=== PATIENT | male | born 1935 | race African-American/Black ===

== ENCOUNTER 2020-09-14 18:53 | Emergency (ER) | payer OTHER ==
[~2020-09-14] VITALS: Ht 177.8 cm; Wt 83.9 kg
[~2020-09-14 18:53] MED LIST: ASPIR 8181 MG PO; ATORVASTATIN CA10 MG PO; DOXAZOSIN MESYLA8 MG PO; OMEPRAZOLE20 MG PO; VERAPAMIL ER240 MG PO; ZESTRIL20 MG PO
[2020-09-14] MEDS ORDERED: LIDOCAINE JELLY 2% 10ML URO-JET TOP ONE (19:45)
[2020-09-14 20:01] LABS: BASOPHILS # (AUTO) 0.1 (0.0-0.1); BASOPHILS % 0.3 % (0.0-1.0); EOSINOPHILS # (AUTO) 0.1 (0.0-0.4); EOSINOPHILS % 0.5 % (0.0-6.0); HEMATOCRIT 41.2 % (38.2-49.6); HEMOGLOBIN 13.7 g/dL (14.0-18.0); LYMPHOCYTES % 6.7 % (18.0-39.1); MEAN CORPUSCULAR HEMOGLOBIN 31.5 pg (28-32); MEAN CORPUSCULAR HGB CONC 33.3 g/dL (31-35); MEAN CORPUSCULAR VOLUME 94.7 fL (81-99); MONOCYTES # (AUTO) 1.1 (0.2-0.8); MONOCYTES % 7.4 % (4.4-11.3); NEUTROPHILS # (AUTO) 12.3 (2.1-6.9); NEUTROPHILS % 84.4 % (38.7-80.0); PLATELET COUNT 160 x10e3/uL (140-360); RED BLOOD COUNT 4.35 x10e6/uL (4.3-5.7)
[2020-09-14 20:18] LABS: ANION GAP 16.8 mmol/L (8-16); BLOOD UREA NITROGEN 21 mg/dL (7-26); BUN/CREATININE RATIO 17 (6-25); CALCIUM 8.4 mg/dL (8.4-10.2); CARBON DIOXIDE 27 mmol/L (22-29); CHLORIDE 98 mmol/L (98-107); CREATININE, SERUM 1.23 mg/dL (0.72-1.25); EST GLOMERULAR FILTRATION RATE > 60 ML/MIN (60-); GLUCOSE 102 mg/dL (74-118); POTASSIUM 3.8 mmol/L (3.5-5.1); SODIUM 138 mmol/L (136-145)
[2020-09-14 20:39] LABS: CLARITY,URINE SL CLOUDY (CLEAR); COLOR,URINE YELLOW (YELLOW); KETONES,URINE NEGATIVE (NEGATIVE); NITRITE,URINE NEGATIVE (NEGATIVE); PROTEIN,URINE DIPSTICK NEGATIVE (NEGATIVE); URINE UROBILINOGEN 0.2 mg/dL (0.2 - 1)
[2020-09-14 20:40] LABS: LEUKOCYTE ESTERASE ,URINE TRACE (NEGATIVE)
[2020-09-14 20:49] LABS: BACTERIA,URINE MANY /HPF; RBC,URINE 0-5 /HPF (0-5)
[2020-09-14] MEDS ORDERED: CEFTRIAXONE SOD 1 GM in SODIUM CHLORIDE 0.9% 50ML 50 ML IV ONE (21:45)
[2020-09-14] MEDS ORDERED: CEFTRIAXONE SOD 1 GM/50 ML BAG IV ONE (21:45)
== END 2020-09-14 22:53 | disposition home or self-care (01) ==
LOC: ER 19:41
DX: R33.9 Retention of urine, unspecified (principal); N39.0 Urinary tract infection, site not specified; N40.1 Benign prostatic hyperplasia with lower urinary tract symptoms; I10 Essential (primary) hypertension; G20 Parkinson's disease; M25.561 Pain in right knee; G89.29 Other chronic pain
CPT/HCPCS: 36415; 51700; 80048; 81001; 85025; 87086; 87186; 99284; J0696

== ENCOUNTER 2021-09-02 06:09 | Observation (INO) | payer MEDICARE ==
[2021-08-31 14:16] LABS: BASOPHILS # (AUTO) 0.1 (0.0-0.1); BASOPHILS % 1.5 % (0.0-1.0); EOSINOPHILS # (AUTO) 0.6 (0.0-0.4); HEMATOCRIT 39.3 % (38.2-49.6); HEMOGLOBIN 12.8 g/dL (14.0-18.0); LYMPHOCYTES % 30.1 % (18.0-39.1); MEAN CORPUSCULAR HEMOGLOBIN 31.8 pg (28-32); MEAN CORPUSCULAR HGB CONC 32.6 g/dL (31-35); MEAN CORPUSCULAR VOLUME 97.8 fL (81-99); MONOCYTES # (AUTO) 0.4 (0.2-0.8); MONOCYTES % 10.2 % (4.4-11.3); NEUTROPHILS # (AUTO) 1.4 (2.1-6.9); NEUTROPHILS % 40.9 % (38.7-80.0); PLATELET COUNT 154 x10e3/uL (140-360); RED BLOOD COUNT 4.02 x10e6/uL (4.3-5.7); RED CELL DISTRIBUTION WIDTH 11.9 % (11.7-14.4)
[2021-08-31 14:17] LABS: ANION GAP 9.9 mmol/L (8-16); CALCIUM 8.9 mg/dL (8.4-10.2); CREATININE, SERUM 1.18 mg/dL (0.72-1.25); POTASSIUM 3.9 mmol/L (3.5-5.1)
[~2021-09-02] VITALS: Ht 177.8 cm; Wt 76.2 kg
[~2021-09-02 06:09] MED LIST changes: +AMANTADINE100 M1 PO; +CARBIDOPA-LEVO1 EACH PO; +FINASTERIDE5 MG PO; +FLOMAX0.4 MG PO
[2021-09-02] MEDS ORDERED: CEFTRIAXONE 1 GM VIAL ONE (07:02)
[2021-09-02] MEDS ORDERED: IOHEXOL 300 MG/ML 30ML INFUS..BTL ONE (08:00)
[2021-09-02] MEDS ORDERED: FENTANYL CITRATE/PF 100MCG/2 ML INJ ONE ×2 (10:00→13:08)
[2021-09-02] MEDS ORDERED: LABETALOL HCL 0 ML ONE (10:26)
[2021-09-02] MEDS ORDERED: HYDRALAZINE HCL 20 MG/ML VIAL ONE (10:43)
[2021-09-02 12:15] VITALS: BP 154/91
[2021-09-02] MEDS ORDERED: POVIDONE IODINE 0.05% 0.05 % ML PO ONE (12:49)
[2021-09-02] MEDS ORDERED: PROPOFOL IV EMULSION 10 MG/ML 20 ML VIAL ONE (12:49)
[2021-09-02] MEDS ORDERED: LIDOCAINE HCL 2% LOCAL INJ 5 ML SDV VIAL INJ ONE (12:49)
[2021-09-02] MEDS ORDERED: DEXAMETHASONE SOD PHOS INJ 4 MG/ML SDV ONE (12:49)
[2021-09-02] MEDS ORDERED: ONDANSETRON HCL INJ 2MG/ML 2ML 2 MG/ML VIAL ONE (12:49)
[2021-09-02] MEDS ORDERED: EPHEDRINE SULFATE INJ 50 MG/ML VIAL ONE (12:49)
[2021-09-02] MEDS ORDERED: SEVOFLURANE INHAL SOLN 250 ML PEN BTL ONE (12:49)
[2021-09-02] MEDS ORDERED: DEXTROSE 5%/0.9% SOD CHL 1,000 ML IV ONE (14:45)
[2021-09-02] MEDS ORDERED: ACETAMINOPHEN/CODEINE 300MG - 30MG TAB PO PRN (14:45)
[2021-09-02 14:54] VITALS: BP 108/61
[2021-09-02 20:00] VITALS: BP 113/65
[2021-09-02] MEDS: CARBIDOPA/LEVODOPA 10/100 TAB PO SCH (20:47)
[2021-09-02 21:30] VITALS: BP 113/65
[2021-09-03] VITALS: BP 121/66
[2021-09-03 04:00] VITALS: BP 123/67
[2021-09-03 05:57] LABS: BASOPHILS % 0.5 % (0.0-1.0); EOSINOPHILS # (AUTO) 0.2 (0.0-0.4); EOSINOPHILS % 3.1 % (0.0-6.0); HEMATOCRIT 26.4 % (38.2-49.6); HEMOGLOBIN 8.5 g/dL (14.0-18.0); LYMPHOCYTES # (AUTO) 1.3 (1.0-3.2); LYMPHOCYTES % 19.4 % (18.0-39.1); MEAN CORPUSCULAR HEMOGLOBIN 31.5 pg (28-32); MEAN CORPUSCULAR HGB CONC 32.2 g/dL (31-35); MEAN CORPUSCULAR VOLUME 97.8 fL (81-99); MONOCYTES # (AUTO) 0.6 (0.2-0.8); MONOCYTES % 9.6 % (4.4-11.3); NEUTROPHILS # (AUTO) 4.3 (2.1-6.9); NEUTROPHILS % 67.1 % (38.7-80.0); PLATELET COUNT 130 x10e3/uL (140-360); RED CELL DISTRIBUTION WIDTH 11.8 % (11.7-14.4)
[2021-09-03 06:21] LABS: CALCIUM 7.9 mg/dL (8.4-10.2); CREATININE, SERUM 0.84 mg/dL (0.72-1.25); POTASSIUM 3.9 mmol/L (3.5-5.1)
[2021-09-03 06:22] LABS: ANION GAP 5.9 mmol/L (8-16)
[2021-09-03] MEDS ORDERED: PANTOPRAZOLE SOD 40 MG TABEC PO SCH (07:30)
[2021-09-03 07:40] VITALS: BP 143/87
[2021-09-03] MEDS: CARBIDOPA/LEVODOPA 10/100 TAB PO SCH ×2 (09:00→15:00)
[2021-09-03] MEDS ORDERED: FINASTERIDE 5 MG TAB PO SCH (09:00)
[2021-09-03] MEDS ORDERED: AMANTADINE HCL PO SCH (09:00)
[2021-09-03] MEDS ORDERED: TAMSULOSIN HCL 0.4 MG CAP PO SCH (09:00)
[2021-09-03] MEDS: AMANTADINE HCL 50 MG/5 ML SOLUTION PO SCH ×2 (09:00→10:00)
[2021-09-03 09:59] VITALS: BP 143/87
[2021-09-03 12:02] VITALS: BP_SYST 135; BP_SYST 141; BP_DIAS 76; BP_DIAS 86
== END 2021-09-03 16:25 | disposition home or self-care (01) ==
LOC: OR 06:09 → PACU V 09:31 → MED/SURG 11:51
PROVIDERS: ADMIT Urology; ATTEND Urology
DX: N32.0 Bladder-neck obstruction (principal); N40.1 Benign prostatic hyperplasia with lower urinary tract symptoms; N13.8 Other obstructive and reflux uropathy; I10 Essential (primary) hypertension; Z20.822 Contact with and (suspected) exposure to COVID-19; G20 Parkinson's disease
CPT/HCPCS: 36415 ×2; 52601; 71046; 80048 ×2; 85025 ×2; 88305; 93005; G0378 ×2; J0360; J0696; J1100; J2001; J2405; J2704; J3010; J7042; S0164; U0002; Q9967

== ENCOUNTER 2021-12-02 11:28 | Emergency (ER) | payer MEDICARE, OTHER ==
[~2021-12-02] VITALS: Ht 177.8 cm; Wt 76.2 kg
[2021-12-02] MEDS ORDERED: HYDROCODONE/APAP 5MG-325MG TAB PO ONE (12:00)
[2021-12-02 12:07] LABS: BASOPHILS % 0.6 % (0.0-1.0); EOSINOPHILS # (AUTO) 0.1 (0.0-0.4); EOSINOPHILS % 1.5 % (0.0-6.0); HEMATOCRIT 32.7 % (38.2-49.6); HEMOGLOBIN 10.1 g/dL (14.0-18.0); LYMPHOCYTES # (AUTO) 0.7 (1.0-3.2); MEAN CORPUSCULAR HEMOGLOBIN 29.7 pg (28-32); MEAN CORPUSCULAR HGB CONC 30.9 g/dL (31-35); MEAN CORPUSCULAR VOLUME 96.2 fL (81-99); MONOCYTES # (AUTO) 0.4 (0.2-0.8); NEUTROPHILS # (AUTO) 5.3 (2.1-6.9); NEUTROPHILS % 80.4 % (38.7-80.0); PLATELET COUNT 145 x10e3/uL (140-360); RED CELL DISTRIBUTION WIDTH 12.5 % (11.7-14.4)
[2021-12-02] MEDS ORDERED: NEOMYCIN/POLYMYXIN/BACITRACIN 15 GM TUBE TOP ONE (12:30)
[2021-12-02 12:42] LABS: ALBUMIN 3.6 g/dL (3.5-5.0); ALBUMIN/GLOBULIN RATIO 1.1 (0.8-2.0); ALKALINE PHOSPHATASE 81 IU/L (40-150); ANION GAP 14.4 mmol/L (8-16); BLOOD UREA NITROGEN 28 mg/dL (7-26); BUN/CREATININE RATIO 14 (6-25); CALCIUM 8.2 mg/dL (8.4-10.2); CARBON DIOXIDE 25 mmol/L (22-29); CHLORIDE 103 mmol/L (98-107); CREATININE, SERUM 1.97 mg/dL (0.72-1.25); GLUCOSE 139 mg/dL (74-118); POTASSIUM 4.4 mmol/L (3.5-5.1); SODIUM 138 mmol/L (136-145)
[2021-12-02 12:44] LABS: ALANINE AMINOTRANSFERASE < 6 IU/L (0-55)
[2021-12-02] MEDS ORDERED: SODIUM CHLORIDE 0.9% 1000ML 1,000 ML IV ONE (13:15)
[2021-12-02] MEDS ORDERED: IOPAMIDOL 370 MG/ML 100 ML INFUS..BTL INJ ONE (13:34)
[2021-12-02 14:33] LABS: CLARITY,URINE CLOUDY (CLEAR); COLOR,URINE BROWN (YELLOW)
[2021-12-02 14:34] LABS: KETONES,URINE NEGATIVE (NEGATIVE); LEUKOCYTE ESTERASE ,URINE SMALL (NEGATIVE); NITRITE,URINE NEGATIVE (NEGATIVE); PROTEIN,URINE DIPSTICK 2+ (NEGATIVE); URINE UROBILINOGEN 0.2 mg/dL (0.2 - 1)
[2021-12-02 14:51] LABS: BACTERIA,URINE MODERATE /HPF; RBC,URINE >50 /HPF (0-5)
[2021-12-02] MEDS ORDERED: MEROPENEM 500 MG VIAL ONE (15:42)
[2021-12-02 15:58] VITALS: BP 169/83
== END 2021-12-02 15:55 | disposition other institution (70) ==
LOC: ER 11:42
DX: S22.41XA Multiple fractures of ribs, right side, initial encounter for closed fracture (principal); J93.9 Pneumothorax, unspecified; N13.1 Hydronephrosis with ureteral stricture, not elsewhere classified; R31.9 Hematuria, unspecified; R16.0 Hepatomegaly, not elsewhere classified; I10 Essential (primary) hypertension; G20 Parkinson's disease; W01.198A Fall on same level from slipping, tripping and stumbling with subsequent striking against other object, initial encounter; Y93.01 Activity, walking, marching and hiking; Y92.091 Bathroom in other non-institutional residence as the place of occurrence of the external cause
CPT/HCPCS: 36415; 70450; 71260; 72125; 73080; 74177; 80053; 81001; 85025; 87086; 99284; J2185; J7030; Q9967

== ENCOUNTER 2022-01-15 15:17 | Emergency (ER) | payer MEDICARE ==
[~2022-01-15] VITALS: Ht 177.8 cm; Wt 76.2 kg
[2022-01-15 17:58] LABS: BASOPHILS % 0.5 % (0.0-1.0); EOSINOPHILS # (AUTO) 0.9 (0.0-0.4); EOSINOPHILS % 16.4 % (0.0-6.0); HEMATOCRIT 34.9 % (38.2-49.6); HEMOGLOBIN 11.1 g/dL (14.0-18.0); LYMPHOCYTES # (AUTO) 1.3 (1.0-3.2); LYMPHOCYTES % 23.1 % (18.0-39.1); MEAN CORPUSCULAR HEMOGLOBIN 29.7 pg (28-32); MEAN CORPUSCULAR HGB CONC 31.8 g/dL (31-35); MEAN CORPUSCULAR VOLUME 93.3 fL (81-99); MONOCYTES # (AUTO) 0.5 (0.2-0.8); MONOCYTES % 9.4 % (4.4-11.3); NEUTROPHILS # (AUTO) 2.8 (2.1-6.9); NEUTROPHILS % 50.2 % (38.7-80.0); PLATELET COUNT 199 x10e3/uL (140-360); RED BLOOD COUNT 3.74 x10e6/uL (4.3-5.7); RED CELL DISTRIBUTION WIDTH 13.8 % (11.7-14.4)
[2022-01-15 18:18] LABS: ALBUMIN 3.4 g/dL (3.5-5.0); ANION GAP 14.3 mmol/L (8-16); BLOOD UREA NITROGEN 25 mg/dL (7-26); BUN/CREATININE RATIO 21 (6-25); CALCIUM 8.5 mg/dL (8.4-10.2); CARBON DIOXIDE 27 mmol/L (22-29); CHLORIDE 103 mmol/L (98-107); CREATININE, SERUM 1.18 mg/dL (0.72-1.25); GLUCOSE 109 mg/dL (74-118); POTASSIUM 4.3 mmol/L (3.5-5.1); SODIUM 140 mmol/L (136-145)
[2022-01-15 18:19] LABS: ALBUMIN/GLOBULIN RATIO 0.8 (0.8-2.0); ALKALINE PHOSPHATASE 116 IU/L (40-150)
[2022-01-15 18:29] LABS: ALANINE AMINOTRANSFERASE < 6 IU/L (0-55)
[2022-01-15 20:40] VITALS: BP 162/80
== END 2022-01-15 20:35 | disposition home or self-care (01) ==
LOC: ER 15:24
DX: I95.9 Hypotension, unspecified (principal); I10 Essential (primary) hypertension; G20 Parkinson's disease
CPT/HCPCS: 36415; 80053; 84484; 85025; 93005; 99283

== ENCOUNTER → 2024-01-25 | Day surgery (SDC) | payer MEDICARE ==
[2024-01-22 12:31] LABS: BASOPHILS # (AUTO) 0.1 (0.0-0.1); BASOPHILS % 0.8 % (0.0-1.0); EOSINOPHILS # (AUTO) 0.6 (0.0-0.4); EOSINOPHILS % 10.4 % (0.0-6.0); HEMATOCRIT 40.4 % (38.2-49.6); HEMOGLOBIN 12.5 g/dL (14.0-18.0); LYMPHOCYTES # (AUTO) 1.6 (1.0-3.2); LYMPHOCYTES % 25.9 % (18.0-39.1); MEAN CORPUSCULAR HEMOGLOBIN 30.2 pg (28-32); MEAN CORPUSCULAR HGB CONC 30.9 g/dL (31-35); MEAN CORPUSCULAR VOLUME 97.6 fL (81-99); MONOCYTES # (AUTO) 0.5 (0.2-0.8); MONOCYTES % 8.1 % (4.4-11.3); NEUTROPHILS # (AUTO) 3.3 (2.1-6.9); NEUTROPHILS % 54.3 % (38.7-80.0); PLATELET COUNT 156 x10e3/uL (140-360); RED BLOOD COUNT 4.14 x10e6/uL (4.3-5.7); RED CELL DISTRIBUTION WIDTH 12.8 % (11.7-14.4); WHITE BLOOD COUNT 6.07 x10e3/uL (4.8-10.8)
[2024-01-22 12:50] LABS: ANION GAP 15.1 mmol/L (8-16); CALCIUM 9.5 mg/dL (8.4-10.2); CREATININE, SERUM 1.15 mg/dL (0.72-1.25); POTASSIUM 4.1 mmol/L (3.5-5.1)
[~2024-01-25] MED LIST changes: +ATORVASTATIN CA20 MG PO; +BUPIVACAINE 0.25% 30ML SDV ONE; +BUPIVACAINE HCL 0.5% INJ 30 ML VIAL INJ ONE; +EPHEDRINE SULFATE INJ 50 MG/ML VIAL ONE; +FENTANYL CITRATE/PF 100MCG/2 ML INJ ONE; +GLYCOPYRRO0.2 MG/1 M PO; +IOPAMIDOL 610MG/1ML 300 MG/ML VIAL IV ONE; +LIDOCAINE HCL 2% LOCAL INJ 5 ML SDV VIAL INJ ONE; +NEOSTIGMINE 1 MG/ML 10ML VIAL ONE; +ONDANSETRON HCL INJ 2MG/ML 2ML 2 MG/ML VIAL ONE; +PROPOFOL IV EMULSION 10 MG/ML 20 ML VIAL ONE; +SEVOFLURANE INHAL SOLN 250 ML PEN BTL ONE; +VITAMIN D350 MCG
[2024-01-25] MEDS: LACTATED RINGER'S 1,000 ML ONE (09:19)
[2024-01-25] MEDS: CEFTRIAXONE 1 GM VIAL ONE (09:19)
[2024-01-25] MEDS: HYDRALAZINE HCL 20 MG/ML VIAL ONE (09:32)
[2024-01-25 10:48] VITALS: TEMP 97.2
[2024-01-25 12:00] VITALS: BP 135/89; PULSE 75; RESP 16; O2SAT 95
== END | disposition home or self-care (01) ==
LOC: OR 07:13
PROVIDERS: ATTEND Urology
DX: R33.9 Retention of urine, unspecified (principal); Q54.8 Other hypospadias; N39.0 Urinary tract infection, site not specified; G20.A1 Parkinson's disease without dyskinesia, without mention of fluctuations; I10 Essential (primary) hypertension; E78.5 Hyperlipidemia, unspecified; K21.9 Gastro-esophageal reflux disease without esophagitis; E66.9 Obesity, unspecified; Z01.810 Encounter for preprocedural cardiovascular examination; Z01.812 Encounter for preprocedural laboratory examination; Z01.818 Encounter for other preprocedural examination; Z79.82 Long term (current) use of aspirin; Z79.899 Other long term (current) drug therapy; Z68.30 Body mass index [BMI] 30.0-30.9, adult
CPT/HCPCS: 36415; 51040; 71046; 80048; 85025; 93005; J0360; J0696; J2001; J2405; J2704; J2710; J3010; J7121

== ENCOUNTER 2024-05-16 11:25 | Inpatient (IN) | payer MEDICARE ==
[~2024-05-16] VITALS: Ht 177.8 cm; Wt 74.8 kg
[2024-05-16] VITALS (7 sets, daily range): BP systolic 106–131; BP diastolic 59–80; PULSE 58–60; RESP 17–19; TEMP 97.6–208; O2SAT 98–100
[~2024-05-16 11:25] MED LIST changes: -BUPIVACAINE 0.25% 30ML SDV ONE; -BUPIVACAINE HCL 0.5% INJ 30 ML VIAL INJ ONE; -EPHEDRINE SULFATE INJ 50 MG/ML VIAL ONE; -FENTANYL CITRATE/PF 100MCG/2 ML INJ ONE; -IOPAMIDOL 610MG/1ML 300 MG/ML VIAL IV ONE; -LIDOCAINE HCL 2% LOCAL INJ 5 ML SDV VIAL INJ ONE; -NEOSTIGMINE 1 MG/ML 10ML VIAL ONE; -ONDANSETRON HCL INJ 2MG/ML 2ML 2 MG/ML VIAL ONE; -PROPOFOL IV EMULSION 10 MG/ML 20 ML VIAL ONE; -SEVOFLURANE INHAL SOLN 250 ML PEN BTL ONE; -VITAMIN D350 MCG; +VITAMIN D350 MCG PO
[2024-05-16 12:13] LABS: BASOPHILS % 0.7 % (0.0-1.0); EOSINOPHILS # (AUTO) 0.9 (0.0-0.4); EOSINOPHILS % 14.3 % (0.0-6.0); HEMATOCRIT 39.2 % (38.2-49.6); HEMOGLOBIN 11.8 g/dL (14.0-18.0); LYMPHOCYTES # (AUTO) 1.9 (1.0-3.2); LYMPHOCYTES % 31.3 % (18.0-39.1); MEAN CORPUSCULAR HEMOGLOBIN 30.8 pg (28-32); MEAN CORPUSCULAR HGB CONC 30.1 g/dL (31-35); MEAN CORPUSCULAR VOLUME 102.3 fL (81-99); MONOCYTES # (AUTO) 0.5 (0.2-0.8); MONOCYTES % 8.1 % (4.4-11.3); NEUTROPHILS # (AUTO) 2.7 (2.1-6.9); NEUTROPHILS % 45.4 % (38.7-80.0); PLATELET COUNT 147 x10e3/uL (140-360); RED BLOOD COUNT 3.83 x10e6/uL (4.3-5.7); RED CELL DISTRIBUTION WIDTH 13.5 % (11.7-14.4); WHITE BLOOD COUNT 6.03 x10e3/uL (4.8-10.8)
[2024-05-16] MEDS: SODIUM CHLORIDE 0.9% 500ML 500 ML IV ONE (12:20)
[2024-05-16 12:43] LABS: ALBUMIN 3.3 g/dL (3.5-5.0); ANION GAP 10.9 mmol/L (8-16); BILIRUBIN,TOTAL 0.4 mg/dL (0.2-1.2); CALCIUM 8.8 mg/dL (8.4-10.2); CREATININE, SERUM 1.06 mg/dL (0.72-1.25); POTASSIUM 3.9 mmol/L (3.5-5.1); TOTAL PROTEIN 6.6 g/dL (6.5-8.1)
[2024-05-16 12:50] LABS: CLARITY,URINE TURBID (CLEAR); COLOR,URINE YELLOW (YELLOW)
[2024-05-16 12:51] LABS: BACTERIA,URINE MANY /HPF; BILIRUBIN,URINE NEGATIVE (NEGATIVE); EPITHELIAL CELLS,URINE FEW /LPF; GLUCOSE, URINE NEGATIVE (NEGATIVE); KETONES,URINE NEGATIVE (NEGATIVE); LEUKOCYTE ESTERASE ,URINE LARGE (NEGATIVE); NITRITE,URINE NEGATIVE (NEGATIVE); PH,URINE 6 (5 - 7); PROTEIN,URINE DIPSTICK 2+ (NEGATIVE); URINE UROBILINOGEN 0.2 mg/dL (0.2 - 1); WBC,URINE (MAN) >50 /HPF (0-5)
[2024-05-16] MEDS ORDERED: IOPAMIDOL 370 MG/ML 100 ML INFUS..BTL INJ ONE (13:00)
[2024-05-16] MEDS ORDERED: ONDANSETRON HCL INJ 2MG/ML 2ML 2 MG/ML VIAL IV PRN (15:15)
[2024-05-16] MEDS ORDERED: SODIUM CHLORIDE FLUSH 10 ML SYR INJ PRN (15:15)
[2024-05-16] MEDS: HYDRALAZINE HCL 20 MG/ML VIAL IV STA (16:34)
[2024-05-16] MEDS ORDERED: DOCUSATE SODIUM 100 MG CAP PO SCH (17:00)
[2024-05-16] MEDS: SOD PHOSPHATE/SOD BIPHOSPHATE ENEMA 132 ML BTL PR ONE (19:31)
[2024-05-16] MEDS: MINERAL OIL 132 ML BTL PR ONE (23:30)
[2024-05-17] VITALS (10 sets, daily range): BP systolic 123–156; BP diastolic 54–89; PULSE 58–79; RESP 17–20; TEMP 97.3–98.6; O2SAT 95–100
[2024-05-17] MEDS ORDERED: MAGNESIUM HYDROXIDE 30 ML UDC PO ONE (00:30)
[2024-05-17] MEDS: MAGNESIUM HYDROXIDE 30 ML UDC PO STA (00:41)
[2024-05-17 01:59] LABS: % IRON SATURATION 31 % (15-50); IRON 67 ug/dL (65-175); TOTAL IRON BINDING CAPACITY 218 ug/dL (261-478); TRANSFERRIN 156 mg/dL (174-364)
[2024-05-17 02:33] LABS: FOLATE 5.7 ng/mL (7.0-15.4)
[2024-05-17 06:37] LABS: BASOPHILS # (AUTO) 0.1 (0.0-0.1); BASOPHILS % 1.1 % (0.0-1.0); EOSINOPHILS # (AUTO) 0.7 (0.0-0.4); EOSINOPHILS % 13.4 % (0.0-6.0); HEMATOCRIT 33.7 % (38.2-49.6); HEMOGLOBIN 10.4 g/dL (14.0-18.0); LYMPHOCYTES # (AUTO) 1.4 (1.0-3.2); LYMPHOCYTES % 27.6 % (18.0-39.1); MEAN CORPUSCULAR HGB CONC 30.9 g/dL (31-35); MEAN CORPUSCULAR VOLUME 100.6 fL (81-99); MONOCYTES # (AUTO) 0.4 (0.2-0.8); NEUTROPHILS # (AUTO) 2.6 (2.1-6.9); NEUTROPHILS % 49.7 % (38.7-80.0); PLATELET COUNT 152 x10e3/uL (140-360); RED BLOOD COUNT 3.35 x10e6/uL (4.3-5.7); RED CELL DISTRIBUTION WIDTH 13.6 % (11.7-14.4); WHITE BLOOD COUNT 5.22 x10e3/uL (4.8-10.8)
[2024-05-17 06:58] LABS: ALBUMIN 2.8 g/dL (3.5-5.0); BILIRUBIN,TOTAL 0.5 mg/dL (0.2-1.2); CALCIUM 8.8 mg/dL (8.4-10.2); CREATININE, SERUM 0.86 mg/dL (0.72-1.25); TOTAL PROTEIN 5.5 g/dL (6.5-8.1)
[2024-05-17] MEDS ORDERED: MELATONIN 3 MG TAB PO PRN (12:15)
[2024-05-17] MEDS ORDERED: SIMETHICONE 80 MG CHEW PO PRN (12:15)
[2024-05-17] MEDS ORDERED: ONDANSETRON HCL INJ 2MG/ML 2ML 2 MG/ML VIAL IV PRN (12:15)
[2024-05-17] MEDS ORDERED: METOPROLOL TARTRATE INJ 1 MG/ML VIAL IV PRN (12:15)
[2024-05-17] MEDS ORDERED: ALBUTEROL/IPRATROPIUM 3 ML NEB NEB PRN (12:15)
[2024-05-17] MEDS: SODIUM CHLORIDE 0.45% 1,000 ML IV SCH (13:09)
[2024-05-17] MEDS: PANTOPRAZOLE SOD 40 MG TABEC PO SCH (17:32)
[2024-05-17] MEDS: DOCUSATE SODIUM 100 MG CAP PO SCH (17:32)
[2024-05-17] MEDS: ATORVASTATIN 20 MG TAB PO SCH (21:44)
[2024-05-17] MEDS: SENNOSIDES 8.6 MG TAB PO SCH (21:44)
[2024-05-18] VITALS (10 sets, daily range): BP systolic 132–156; BP diastolic 65–79; PULSE 58–77; RESP 18–19; TEMP 98.2–99; O2SAT 93–100
[2024-05-18] MEDS: MAGNESIUM HYDROXIDE 30 ML UDC PO ONE ×3 (00:09→23:31)
[2024-05-18 06:49] LABS: BASOPHILS % 0.6 % (0.0-1.0); EOSINOPHILS # (AUTO) 0.8 (0.0-0.4); EOSINOPHILS % 14.1 % (0.0-6.0); HEMATOCRIT 32.5 % (38.2-49.6); HEMOGLOBIN 10.2 g/dL (14.0-18.0); LYMPHOCYTES # (AUTO) 1.3 (1.0-3.2); LYMPHOCYTES % 24.8 % (18.0-39.1); MEAN CORPUSCULAR HEMOGLOBIN 31.2 pg (28-32); MEAN CORPUSCULAR HGB CONC 31.4 g/dL (31-35); MEAN CORPUSCULAR VOLUME 99.4 fL (81-99); MONOCYTES # (AUTO) 0.4 (0.2-0.8); MONOCYTES % 8.1 % (4.4-11.3); NEUTROPHILS # (AUTO) 2.8 (2.1-6.9); NEUTROPHILS % 52.2 % (38.7-80.0); PLATELET COUNT 137 x10e3/uL (140-360); RED BLOOD COUNT 3.27 x10e6/uL (4.3-5.7); RED CELL DISTRIBUTION WIDTH 13.1 % (11.7-14.4); WHITE BLOOD COUNT 5.33 x10e3/uL (4.8-10.8)
[2024-05-18 07:15] LABS: CALCIUM 8.2 mg/dL (8.4-10.2); CREATININE, SERUM 0.85 mg/dL (0.72-1.25); MAGNESIUM 2.1 MG/DL (1.3-2.1); PHOSPHORUS 2.5 MG/DL (2.3-4.7)
[2024-05-18] MEDS: FOLIC ACID/CYANOCOB/PYRIDOXINE TAB PO SCH (09:15)
[2024-05-18] MEDS: ASPIRIN 81 MG CHEW TAB PO SCH (09:15)
[2024-05-18] MEDS: GUAIFENESIN/DEXTROMETHORPHAN LIQD 5 ML UDC NG SCH (15:15)
[2024-05-19] VITALS (8 sets, daily range): BP systolic 109–142; BP diastolic 56–68; PULSE 60–90; RESP 18–23; TEMP 98.3–100.3; O2SAT 94–100
[2024-05-19 05:45] LABS: BASOPHILS % 0.5 % (0.0-1.0); EOSINOPHILS # (AUTO) 0.8 (0.0-0.4); HEMATOCRIT 32.2 % (38.2-49.6); HEMOGLOBIN 10.2 g/dL (14.0-18.0); LYMPHOCYTES # (AUTO) 1.6 (1.0-3.2); LYMPHOCYTES % 26.9 % (18.0-39.1); MEAN CORPUSCULAR HEMOGLOBIN 31.3 pg (28-32); MEAN CORPUSCULAR HGB CONC 31.7 g/dL (31-35); MEAN CORPUSCULAR VOLUME 98.8 fL (81-99); MONOCYTES # (AUTO) 0.6 (0.2-0.8); MONOCYTES % 9.4 % (4.4-11.3); NEUTROPHILS # (AUTO) 2.9 (2.1-6.9); NEUTROPHILS % 49.9 % (38.7-80.0); PLATELET COUNT 135 x10e3/uL (140-360); RED BLOOD COUNT 3.26 x10e6/uL (4.3-5.7); RED CELL DISTRIBUTION WIDTH 13.2 % (11.7-14.4); WHITE BLOOD COUNT 5.84 x10e3/uL (4.8-10.8)
[2024-05-19 06:02] LABS: ANION GAP 9.2 mmol/L (8-16); CALCIUM 8.1 mg/dL (8.4-10.2); CREATININE, SERUM 0.85 mg/dL (0.72-1.25); MAGNESIUM 2.3 MG/DL (1.3-2.1); PHOSPHORUS 2.5 MG/DL (2.3-4.7); POTASSIUM 4.2 mmol/L (3.5-5.1)
[2024-05-19] MEDS: MAGNESIUM HYDROXIDE 30 ML UDC PO ONE (08:55)
[2024-05-19] MEDS: MAGNESIUM HYDROXIDE 30 ML UDC PO SCH (08:57)
[2024-05-20] VITALS (9 sets, daily range): BP systolic 115–139; BP diastolic 64–84; PULSE 61–78; RESP 16–21; TEMP 97.9–99.6; O2SAT 90–98
[2024-05-20] MEDS: MAGNESIUM HYDROXIDE 30 ML UDC PO SCH (09:22)
[2024-05-20] MEDS: CIPROFLOXACIN 500 MG TAB PO SCH (13:37)
[2024-05-20] MEDS ORDERED: ALBUTEROL/IPRATROPIUM 3 ML NEB NEB PRN (13:45)
[2024-05-20] MEDS: DOXYCYCLINE HYCLATE TABLET 100 MG TAB PO SCH (21:33)
[2024-05-21] VITALS: BP 158/67; PULSE 70; RESP 16; TEMP 98.4; O2SAT 93
[2024-05-21] MEDS ORDERED: Docusate Sodium PO (05:11)
[2024-05-21] MEDS ORDERED: MILK OF MA400 MG/5 M PO (05:11)
[2024-05-21] MEDS ORDERED: Folic Acid/Cyanocob/Pyridoxine PO (05:11)
[2024-05-21] MEDS ORDERED: SENOKOT8.6 MG PO (05:11)
[2024-05-21] MEDS ORDERED: DOCUSATE SODIU100 MG PO (05:11)
[2024-05-21] MEDS ORDERED: SIMETHICONE80 MG PO (05:11)
[2024-05-21] MEDS ORDERED: DOXYCYCLINE HY100 MG PO (05:11)
[2024-05-21] MEDS ORDERED: CIPRO500 MG PO (05:11)
[2024-05-21 05:49] VITALS: BP 145/79; PULSE 68; RESP 19; TEMP 98.7; O2SAT 93
[2024-05-21 07:25] VITALS: PULSE 78; RESP 20; O2SAT 98
[2024-05-21 07:41] VITALS: BP 123/74; PULSE 65; RESP 17; TEMP 98; O2SAT 95
[2024-05-21 08:10] VITALS: BP 123/74; PULSE 65; RESP 17; TEMP 98.4; O2SAT 95
== END 2024-05-21 11:15 | disposition home health service (06) | DRG 389 ==
LOC: ER 11:47 → ERHOLD 15:15 → MED/SURG3 17:33
PROVIDERS: ADMIT Internal Medicine; ATTEND Internal Medicine
DX: K56.41 Fecal impaction (principal); N39.0 Urinary tract infection, site not specified; B95.2 Enterococcus as the cause of diseases classified elsewhere; B96.5 Pseudomonas (aeruginosa) (mallei) (pseudomallei) as the cause of diseases classified elsewhere; B96.20 Unspecified Escherichia coli [E. coli] as the cause of diseases classified elsewhere; G20.A1 Parkinson's disease without dyskinesia, without mention of fluctuations; D64.9 Anemia, unspecified; I10 Essential (primary) hypertension; K52.9 Noninfective gastroenteritis and colitis, unspecified; R33.9 Retention of urine, unspecified; Z79.82 Long term (current) use of aspirin; Z99.3 Dependence on wheelchair; Z93.59 Other cystostomy status
CPT/HCPCS: 36415; 71045; 74019; 74177; 76882; 80048; 80053; 81001; 82270; 82607; 82746; 83540; 83690; 83735; 84100; 84466; 85025; 85045; 87086; 87186; 94799; 99252; 99284; J0360; J0696; J7040; Q9967

== ENCOUNTER 2024-05-31 11:55 | Emergency (ER) | payer MEDICARE ==
[~2024-05-31] VITALS: Ht 177.8 cm; Wt 74.8 kg
[~2024-05-31 11:55] MED LIST changes: +CIPRO500 MG PO; +DOCUSATE SODIU100 MG PO; +DOXYCYCLINE HY100 MG PO; +Docusate Sodium PO; +Folic Acid/Cyanocob/Pyridoxine PO; +MILK OF MA400 MG/5 M PO; +SENOKOT8.6 MG PO; +SIMETHICONE80 MG PO
[2024-05-31 13:13] LABS: BASOPHILS # (AUTO) 0.1 (0.0-0.1); BASOPHILS % 0.7 % (0.0-1.0); EOSINOPHILS # (AUTO) 0.8 (0.0-0.4); EOSINOPHILS % 10.6 % (0.0-6.0); HEMATOCRIT 45.6 % (38.2-49.6); HEMOGLOBIN 13.7 g/dL (14.0-18.0); LYMPHOCYTES # (AUTO) 2.2 (1.0-3.2); LYMPHOCYTES % 30.1 % (18.0-39.1); MEAN CORPUSCULAR HEMOGLOBIN 30.7 pg (28-32); MEAN CORPUSCULAR VOLUME 102.2 fL (81-99); MONOCYTES # (AUTO) 0.6 (0.2-0.8); MONOCYTES % 8.3 % (4.4-11.3); NEUTROPHILS # (AUTO) 3.6 (2.1-6.9); NEUTROPHILS % 50.2 % (38.7-80.0); PLATELET COUNT 201 x10e3/uL (140-360); RED BLOOD COUNT 4.46 x10e6/uL (4.3-5.7); RED CELL DISTRIBUTION WIDTH 13.6 % (11.7-14.4); WHITE BLOOD COUNT 7.14 x10e3/uL (4.8-10.8)
[2024-05-31 14:38] LABS: ALBUMIN 3.7 g/dL (3.5-5.0); ALBUMIN/GLOBULIN RATIO 0.9 (0.8-2.0); ANION GAP 16.1 mmol/L (8-16); BILIRUBIN,TOTAL 0.6 mg/dL (0.2-1.2); CALCIUM 9.8 mg/dL (8.4-10.2); CREATININE, SERUM 1.11 mg/dL (0.72-1.25); POTASSIUM 5.1 mmol/L (3.5-5.1)
[2024-05-31 16:21] VITALS: PULSE 71; RESP 18; TEMP 98.6
[2024-05-31 17:37] VITALS: PULSE 71; RESP 18; TEMP 98.3; O2SAT 98
[2024-05-31 17:46] VITALS: BP 210/105
[2024-05-31] MEDS: HYDRALAZINE HCL 20 MG/ML VIAL IV STA (17:46)
== END 2024-05-31 17:40 | disposition home or self-care (01) ==
LOC: ER 12:13
DX: Z46.6 Encounter for fitting and adjustment of urinary device (principal); R33.9 Retention of urine, unspecified; G20.A1 Parkinson's disease without dyskinesia, without mention of fluctuations; I10 Essential (primary) hypertension
CPT/HCPCS: 36415; 51705; 80053; 85025; 99284; J0360

== ENCOUNTER 2024-09-28 11:27 | Inpatient (IN) | payer MEDICARE ==
[~2024-09-28] VITALS: Ht 177.8 cm; Wt 77.1 kg
[2024-09-28 11:41] VITALS: TEMP 98.1
[2024-09-28 12:32] LABS: BASOPHILS # (AUTO) 0.1 (0.0-0.1); BASOPHILS % 1.2 % (0.0-1.0); EOSINOPHILS # (AUTO) 0.8 (0.0-0.4); EOSINOPHILS % 15.6 % (0.0-6.0); HEMATOCRIT 33.2 % (38.2-49.6); HEMOGLOBIN 10.4 g/dL (14.0-18.0); LYMPHOCYTES # (AUTO) 1.6 (1.0-3.2); LYMPHOCYTES % 30.4 % (18.0-39.1); MEAN CORPUSCULAR HEMOGLOBIN 30.1 pg (28-32); MEAN CORPUSCULAR HGB CONC 31.3 g/dL (31-35); MEAN CORPUSCULAR VOLUME 96.2 fL (81-99); MONOCYTES # (AUTO) 0.4 (0.2-0.8); MONOCYTES % 7.4 % (4.4-11.3); NEUTROPHILS # (AUTO) 2.3 (2.1-6.9); NEUTROPHILS % 45.4 % (38.7-80.0); PLATELET COUNT 194 x10e3/uL (140-360); RED BLOOD COUNT 3.45 x10e6/uL (4.3-5.7); RED CELL DISTRIBUTION WIDTH 13.7 % (11.7-14.4); WHITE BLOOD COUNT 5.14 x10e3/uL (4.8-10.8)
[2024-09-28] MEDS: SODIUM CHLORIDE 0.9% 500ML 500 ML IV ONE (12:32)
[2024-09-28 12:35] LABS: BILIRUBIN,URINE NEGATIVE (NEGATIVE); CLARITY,URINE HAZY (CLEAR); COLOR,URINE YELLOW (YELLOW); GLUCOSE, URINE NEGATIVE (NEGATIVE); KETONES,URINE TRACE (NEGATIVE); LEUKOCYTE ESTERASE ,URINE SMALL (NEGATIVE); NITRITE,URINE NEGATIVE (NEGATIVE); PH,URINE 6 (5 - 7); PROTEIN,URINE DIPSTICK 1+ (NEGATIVE); URINE UROBILINOGEN 1 mg/dL (0.2 - 1)
[2024-09-28 12:36] LABS: AMORPHOUS SEDIMENT,URINE FEW; BACTERIA,URINE MODERATE /HPF; EPITHELIAL CELLS,URINE FEW /LPF; WBC,URINE (MAN) 21-50 /HPF (0-5)
[2024-09-28 12:37] LABS: MUCUS,URINE FEW
[2024-09-28] MEDS ORDERED: HYDROMORPHONE 1MG/1ML INJ IV STA (12:40)
[2024-09-28] MEDS ORDERED: ONDANSETRON HCL INJ 2MG/ML 2ML 2 MG/ML VIAL IV STA (12:40)
[2024-09-28 12:45] LABS: INR 1.16; PROTHROMBIN TIME 15.5 seconds (11.9-14.5)
[2024-09-28] MEDS ORDERED: SODIUM CHLORIDE 0.9% 500ML 500 ML IV ONE (12:45)
[2024-09-28 12:46] LABS: PARTIAL THROMBOPLASTIN TIME 25.2 seconds (23.8-35.5)
[2024-09-28 12:52] LABS: ALBUMIN/GLOBULIN RATIO 0.8 (0.8-2.0); ANION GAP 13.2 mmol/L (8-16); BILIRUBIN,TOTAL 0.4 mg/dL (0.2-1.2); CALCIUM 8.9 mg/dL (8.4-10.2); CREATININE, SERUM 0.93 mg/dL (0.72-1.25); MAGNESIUM 1.9 MG/DL (1.3-2.1); POTASSIUM 4.2 mmol/L (3.5-5.1); TOTAL PROTEIN 6.8 g/dL (6.5-8.1)
[2024-09-28 12:59] LABS: TROPONIN I 0.013 ng/mL (0-0.300)
[2024-09-28 13:00] VITALS: PULSE 65; RESP 16
[2024-09-28] MEDS ORDERED: IOPAMIDOL 370 MG/ML 100 ML INFUS..BTL INJ ONE (13:01)
[2024-09-28] MEDS: LEVOFLOXACIN 500MG/D5W 100ML 100 ML IV ONE (14:08)
[2024-09-28] MEDS ORDERED: ONDANSETRON HCL INJ 2MG/ML 2ML 2 MG/ML VIAL IV PRN (14:15)
[2024-09-28 16:08] VITALS: BP 141/97; PULSE 73; RESP 16; O2SAT 98
[2024-09-28 16:14] VITALS: BP 141/97; PULSE 73; RESP 16; O2SAT 98
[2024-09-28 16:56] VITALS: BP 158/93; PULSE 68; RESP 18; TEMP 97.6; O2SAT 100
[2024-09-28] MEDS: SODIUM CHLORIDE 0.9% 1000ML 1,000 ML IV SCH (17:06)
[2024-09-28 20:00] VITALS: BP 135/78; PULSE 67; RESP 19; TEMP 98.1; O2SAT 95
[2024-09-29] VITALS (8 sets, daily range): BP systolic 107–160; BP diastolic 56–93; PULSE 68–91; RESP 16–18; TEMP 97.6–99.7; O2SAT 90–100
[2024-09-29 07:31] LABS: BASOPHILS % 0.6 % (0.0-1.0); EOSINOPHILS # (AUTO) 0.6 (0.0-0.4); EOSINOPHILS % 11.1 % (0.0-6.0); HEMATOCRIT 26.7 % (38.2-49.6); HEMOGLOBIN 8.8 g/dL (14.0-18.0); LYMPHOCYTES # (AUTO) 1.1 (1.0-3.2); LYMPHOCYTES % 22.4 % (18.0-39.1); MEAN CORPUSCULAR HEMOGLOBIN 30.9 pg (28-32); MEAN CORPUSCULAR VOLUME 93.7 fL (81-99); MONOCYTES # (AUTO) 0.3 (0.2-0.8); NEUTROPHILS % 59.7 % (38.7-80.0); PLATELET COUNT 189 x10e3/uL (140-360); RED BLOOD COUNT 2.85 x10e6/uL (4.3-5.7); RED CELL DISTRIBUTION WIDTH 13.4 % (11.7-14.4); WHITE BLOOD COUNT 5.04 x10e3/uL (4.8-10.8)
[2024-09-29 07:48] LABS: ALBUMIN 2.4 g/dL (3.5-5.0); ALBUMIN/GLOBULIN RATIO 0.8 (0.8-2.0); BILIRUBIN,TOTAL 0.4 mg/dL (0.2-1.2); CALCIUM 8.3 mg/dL (8.4-10.2); CREATININE, SERUM 0.84 mg/dL (0.72-1.25); TOTAL PROTEIN 5.3 g/dL (6.5-8.1)
[2024-09-29] MEDS: LEVOFLOXACIN 500MG/D5W 100ML 100 ML IV SCH (10:28)
[2024-09-29] MEDS ORDERED: ONDANSETRON HCL INJ 2MG/ML 2ML 2 MG/ML VIAL IV PRN (14:30)
[2024-09-29] MEDS: GLYCOPYRROLATE 1 MG TAB PO SCH (15:00)
[2024-09-29] MEDS: SCOPOLAMINE 1 MG PATCH TOP SCH (15:04)
[2024-09-29] MEDS: PEG (High)/E-LYTE SOLN 4,000 ML BTL PO ONE (15:07)
[2024-09-30 04:03] VITALS: BP 176/75; PULSE 88; RESP 16; TEMP 98.8; O2SAT 91
[2024-09-30] MEDS: ASPIRIN 81 MG CHEW TAB PO SCH (07:53)
[2024-09-30 08:00] VITALS: BP 143/74; PULSE 86; RESP 17; TEMP 100.4; O2SAT 92
[2024-09-30] MEDS: ACETAMINOPHEN 1000 MG/100 ML IV PRN (10:05)
[2024-09-30 11:47] VITALS: BP 134/69; PULSE 78; RESP 17; TEMP 99; O2SAT 92
[2024-09-30] MEDS: COLLAGENASE 5 GM TUBE TOP SCH (13:47)
[2024-09-30] MEDS: METRONIDAZOLE 500MG/NS 100ML 100 ML IV SCH (13:47)
[2024-09-30] MEDS: BALSAM PERU/CASTOR OIL 60 GM OINT...G. TP SCH (13:49)
[2024-09-30 15:24] VITALS: BP 135/71; PULSE 57; RESP 18; TEMP 98.1; O2SAT 95
[2024-09-30 20:00] VITALS: BP_SYST 143; BP_SYST 144; BP_DIAS 80; BP_DIAS 91; PULSE 55; RESP 21; TEMP 98.5; O2SAT 94
[2024-09-30 21:00] VITALS: BP 144/91; PULSE 55; RESP 21; TEMP 98.5; O2SAT 94
[2024-10-01] VITALS (8 sets, daily range): BP systolic 115–145; BP diastolic 64–77; PULSE 58–65; RESP 16–21; TEMP 97.8–99.7; O2SAT 90–100
[2024-10-01 07:15] LABS: BASOPHILS % 0.5 % (0.0-1.0); EOSINOPHILS # (AUTO) 0.6 (0.0-0.4); EOSINOPHILS % 9.2 % (0.0-6.0); HEMATOCRIT 29.2 % (38.2-49.6); HEMOGLOBIN 9.3 g/dL (14.0-18.0); LYMPHOCYTES # (AUTO) 1.1 (1.0-3.2); LYMPHOCYTES % 17.5 % (18.0-39.1); MEAN CORPUSCULAR HEMOGLOBIN 30.3 pg (28-32); MEAN CORPUSCULAR HGB CONC 31.8 g/dL (31-35); MEAN CORPUSCULAR VOLUME 95.1 fL (81-99); MONOCYTES # (AUTO) 0.6 (0.2-0.8); MONOCYTES % 9.4 % (4.4-11.3); NEUTROPHILS # (AUTO) 4.1 (2.1-6.9); NEUTROPHILS % 63.1 % (38.7-80.0); PLATELET COUNT 161 x10e3/uL (140-360); RED BLOOD COUNT 3.07 x10e6/uL (4.3-5.7); RED CELL DISTRIBUTION WIDTH 13.3 % (11.7-14.4); WHITE BLOOD COUNT 6.41 x10e3/uL (4.8-10.8)
[2024-10-01 07:29] LABS: ANION GAP 12.6 mmol/L (8-16); CALCIUM 8.5 mg/dL (8.4-10.2); CREATININE, SERUM 0.75 mg/dL (0.72-1.25); POTASSIUM 3.6 mmol/L (3.5-5.1)
[2024-10-01 07:47] LABS: MAGNESIUM 1.6 MG/DL (1.3-2.1); PHOSPHORUS 2.8 MG/DL (2.3-4.7)
[2024-10-02] VITALS (9 sets, daily range): BP systolic 115–151; BP diastolic 60–83; PULSE 59–83; RESP 16–20; TEMP 97.9–98.8; O2SAT 92–98
[2024-10-02] MEDS: ALBUTEROL/IPRATROPIUM 3 ML NEB NEB PRN (15:50)
[2024-10-03] VITALS (11 sets, daily range): BP systolic 121–134; BP diastolic 57–73; PULSE 60–86; RESP 18–20; TEMP 97.9–99.3; O2SAT 93–100
[2024-10-03 10:50] LABS: BASOPHILS % 0.5 % (0.0-1.0); EOSINOPHILS # (AUTO) 0.7 (0.0-0.4); EOSINOPHILS % 12.3 % (0.0-6.0); HEMATOCRIT 27.3 % (38.2-49.6); LYMPHOCYTES # (AUTO) 1.1 (1.0-3.2); MEAN CORPUSCULAR HEMOGLOBIN 30.6 pg (28-32); MEAN CORPUSCULAR VOLUME 92.9 fL (81-99); MONOCYTES # (AUTO) 0.5 (0.2-0.8); MONOCYTES % 9.3 % (4.4-11.3); NEUTROPHILS # (AUTO) 3.2 (2.1-6.9); NEUTROPHILS % 57.7 % (38.7-80.0); PLATELET COUNT 165 x10e3/uL (140-360); RED BLOOD COUNT 2.94 x10e6/uL (4.3-5.7); RED CELL DISTRIBUTION WIDTH 13.4 % (11.7-14.4); WHITE BLOOD COUNT 5.51 x10e3/uL (4.8-10.8)
[2024-10-03 11:53] LABS: ANION GAP 11.7 mmol/L (8-16); CALCIUM 8.2 mg/dL (8.4-10.2); CREATININE, SERUM 0.68 mg/dL (0.72-1.25); POTASSIUM 3.7 mmol/L (3.5-5.1)
[2024-10-04] VITALS (10 sets, daily range): BP systolic 107–155; BP diastolic 67–84; PULSE 68–81; RESP 12–20; TEMP 97.9–100.1; O2SAT 93–100
[2024-10-04] MEDS ORDERED: PROPOFOL IV EMULSION 10MG/ML 100 ML IV PRN (23:45)
[2024-10-05] VITALS (32 sets, daily range): BP systolic 95–162; BP diastolic 61–88; PULSE 53–72; RESP 11–21; TEMP 97.8–100; O2SAT 95–100
[2024-10-05 00:40] LABS: ABG HCO3 25 mmol/L (22-26); ABG PCO2 37 mmHg (35-45); ABG PH 7.43 (7.35-7.45); ABG TCO2 26
[2024-10-05 00:41] LABS: ABG PO2 232 mmHg (80-105)
[2024-10-05 01:42] LABS: BASOPHILS % 0.1 % (0.0-1.0); EOSINOPHILS % 0.3 % (0.0-6.0); HEMATOCRIT 26.3 % (38.2-49.6); HEMOGLOBIN 8.6 g/dL (14.0-18.0); LYMPHOCYTES # (AUTO) 0.6 (1.0-3.2); LYMPHOCYTES % 5.7 % (18.0-39.1); MEAN CORPUSCULAR HEMOGLOBIN 30.5 pg (28-32); MEAN CORPUSCULAR HGB CONC 32.7 g/dL (31-35); MEAN CORPUSCULAR VOLUME 93.3 fL (81-99); MONOCYTES # (AUTO) 0.7 (0.2-0.8); MONOCYTES % 6.5 % (4.4-11.3); NEUTROPHILS # (AUTO) 8.7 (2.1-6.9); NEUTROPHILS % 86.7 % (38.7-80.0); PLATELET COUNT 150 x10e3/uL (140-360); RED BLOOD COUNT 2.82 x10e6/uL (4.3-5.7); RED CELL DISTRIBUTION WIDTH 13.3 % (11.7-14.4)
[2024-10-05 01:45] LABS: WHITE BLOOD COUNT 10.06 x10e3/uL (4.8-10.8)
[2024-10-05 02:12] LABS: ALBUMIN 2.2 g/dL (3.5-5.0); ALBUMIN/GLOBULIN RATIO 0.8 (0.8-2.0); ANION GAP 14.1 mmol/L (8-16); BILIRUBIN,TOTAL 0.4 mg/dL (0.2-1.2); CALCIUM 8.1 mg/dL (8.4-10.2); CREATININE, SERUM 0.83 mg/dL (0.72-1.25); POTASSIUM 4.1 mmol/L (3.5-5.1); TOTAL PROTEIN 5.1 g/dL (6.5-8.1)
[2024-10-05 02:17] LABS: TROPONIN I 0.234 ng/mL (0-0.300)
[2024-10-05] MEDS ORDERED: BISACODYL 10 MG SUPP PR PRN (03:00)
[2024-10-05] MEDS ORDERED: DEXTROSE 50% SYRINGE 50 ML IV PRN (03:00)
[2024-10-05] MEDS: SODIUM CHLORIDE 0.9% 1000ML 1,000 ML IV SCH (04:57)
[2024-10-05] MEDS: MINERAL OIL 132 ML BTL PR ONE (04:58)
[2024-10-05] MEDS: INSULIN REGULAR, HUMAN 100 UNIT/1 ML SQ SCH (06:00)
[2024-10-05] MEDS: MULTIVITAMINS/MINERALS TAB GT SCH (07:56)
[2024-10-05] MEDS: LACTULOSE SYRUP 20 GM/30 ML UDC PO SCH (07:56)
[2024-10-05] MEDS: MUPIROCIN 2% OINT 22 GM TUBE TOP SCH (08:13)
[2024-10-05] MEDS: FUROSEMIDE INJ 10 MG/ML 4 ML VIAL IV ONE (09:35)
[2024-10-05] MEDS: EYE LUBRICANT OPTH OINT 3.5GM TUBE OP SCH (12:50)
[2024-10-05] MEDS ORDERED: EPINEPHRINE HCL SYRINGE ONE (13:59)
[2024-10-05] MEDS: ENOXAPARIN SOD INJ 40 MG/0.4 ML SYR SC SCH (17:06)
[2024-10-06] VITALS (28 sets, daily range): BP systolic 84–192; BP diastolic 49–91; PULSE 33–83; RESP 11–19; TEMP 98.2–99.7; O2SAT 91–100
[2024-10-06] MEDS: HYDRALAZINE HCL 20 MG/ML VIAL IV PRN (05:23)
[2024-10-06 06:29] LABS: BASOPHILS % 0.4 % (0.0-1.0); EOSINOPHILS # (AUTO) 0.3 (0.0-0.4); EOSINOPHILS % 2.7 % (0.0-6.0); HEMATOCRIT 28.5 % (38.2-49.6); HEMOGLOBIN 9.5 g/dL (14.0-18.0); LYMPHOCYTES # (AUTO) 1.3 (1.0-3.2); LYMPHOCYTES % 11.7 % (18.0-39.1); MEAN CORPUSCULAR HEMOGLOBIN 30.5 pg (28-32); MEAN CORPUSCULAR HGB CONC 33.3 g/dL (31-35); MEAN CORPUSCULAR VOLUME 91.6 fL (81-99); MONOCYTES # (AUTO) 0.8 (0.2-0.8); MONOCYTES % 6.9 % (4.4-11.3); NEUTROPHILS # (AUTO) 8.5 (2.1-6.9); NEUTROPHILS % 77.9 % (38.7-80.0); PLATELET COUNT 170 x10e3/uL (140-360); RED BLOOD COUNT 3.11 x10e6/uL (4.3-5.7); RED CELL DISTRIBUTION WIDTH 13.9 % (11.7-14.4); WHITE BLOOD COUNT 10.94 x10e3/uL (4.8-10.8)
[2024-10-06 06:47] LABS: ALBUMIN 2.2 g/dL (3.5-5.0); ALBUMIN/GLOBULIN RATIO 0.7 (0.8-2.0); ANION GAP 10.1 mmol/L (8-16); BILIRUBIN,TOTAL 0.5 mg/dL (0.2-1.2); CALCIUM 8.2 mg/dL (8.4-10.2); CREATININE, SERUM 0.8 mg/dL (0.72-1.25); TOTAL PROTEIN 5.2 g/dL (6.5-8.1)
[2024-10-06 06:52] LABS: POTASSIUM 3.1 mmol/L (3.5-5.1)
[2024-10-06] MEDS: POTASSIUM CHLORIDE 20MEQ/100ML 200 ML IV ONE (07:48)
[2024-10-06 08:31] LABS: ABG HCO3 30 mmol/L (22-26); ABG PCO2 35 mmHg (35-45); ABG PH 7.55 (7.35-7.45); ABG PO2 84 mmHg (80-105); ABG TCO2 31
[2024-10-06] MEDS ORDERED: EYE LUBRICANT OPTH OINT 3.5GM TUBE OP SCH (09:00)
[2024-10-06 11:29] LABS: ABG HCO3 30 mmol/L (22-26); ABG PCO2 35 mmHg (35-45); ABG PH 7.55 (7.35-7.45); ABG PO2 84 mmHg (80-105); ABG TCO2 31
[2024-10-06 11:30] LABS: ABG HCO3 25 mmol/L (22-26); ABG PCO2 38 mmHg (35-45); ABG PH 7.43 (7.35-7.45); ABG PO2 232 mmHg (80-105); ABG TCO2 26
[2024-10-07] VITALS (20 sets, daily range): BP systolic 97–153; BP diastolic 51–69; PULSE 52–69; RESP 11–17; TEMP 98.2–100.1; O2SAT 97–100
[2024-10-07 06:36] LABS: BASOPHILS % 0.3 % (0.0-1.0); EOSINOPHILS # (AUTO) 0.2 (0.0-0.4); EOSINOPHILS % 2.5 % (0.0-6.0); HEMATOCRIT 25.2 % (38.2-49.6); LYMPHOCYTES % 13.2 % (18.0-39.1); MEAN CORPUSCULAR HEMOGLOBIN 30.4 pg (28-32); MEAN CORPUSCULAR HGB CONC 31.7 g/dL (31-35); MEAN CORPUSCULAR VOLUME 95.8 fL (81-99); MONOCYTES # (AUTO) 0.6 (0.2-0.8); MONOCYTES % 7.5 % (4.4-11.3); NEUTROPHILS # (AUTO) 5.9 (2.1-6.9); NEUTROPHILS % 76.1 % (38.7-80.0); PLATELET COUNT 190 x10e3/uL (140-360); RED BLOOD COUNT 2.63 x10e6/uL (4.3-5.7); RED CELL DISTRIBUTION WIDTH 14.6 % (11.7-14.4); WHITE BLOOD COUNT 7.74 x10e3/uL (4.8-10.8)
[2024-10-07 07:01] LABS: ALBUMIN 2.1 g/dL (3.5-5.0); ALBUMIN/GLOBULIN RATIO 0.8 (0.8-2.0); ANION GAP 10.6 mmol/L (8-16); BILIRUBIN,TOTAL 0.3 mg/dL (0.2-1.2); CREATININE, SERUM 0.8 mg/dL (0.72-1.25); POTASSIUM 3.6 mmol/L (3.5-5.1); TOTAL PROTEIN 4.9 g/dL (6.5-8.1)
[2024-10-07] MEDS: POTASSIUM CHLORIDE 20MEQ/100ML 100 ML IV ONE (08:53)
[2024-10-07] MEDS: LEVETIRACETAM 1000MG/100ML IV 100 ML IV SCH (08:53)
[2024-10-08] VITALS (25 sets, daily range): BP systolic 103–135; BP diastolic 48–89; PULSE 50–64; RESP 12–17; TEMP 98–100.2; O2SAT 98–100
[2024-10-08 07:12] LABS: BASOPHILS % 0.3 % (0.0-1.0); EOSINOPHILS # (AUTO) 0.4 (0.0-0.4); EOSINOPHILS % 5.8 % (0.0-6.0); HEMATOCRIT 23.7 % (38.2-49.6); LYMPHOCYTES # (AUTO) 1.1 (1.0-3.2); LYMPHOCYTES % 17.4 % (18.0-39.1); MEAN CORPUSCULAR HGB CONC 32.1 g/dL (31-35); MEAN CORPUSCULAR VOLUME 96.7 fL (81-99); MONOCYTES # (AUTO) 0.7 (0.2-0.8); MONOCYTES % 10.8 % (4.4-11.3); NEUTROPHILS # (AUTO) 4.3 (2.1-6.9); NEUTROPHILS % 65.4 % (38.7-80.0); PLATELET COUNT 180 x10e3/uL (140-360); RED BLOOD COUNT 2.45 x10e6/uL (4.3-5.7); RED CELL DISTRIBUTION WIDTH 14.6 % (11.7-14.4); WHITE BLOOD COUNT 6.55 x10e3/uL (4.8-10.8)
[2024-10-08 07:15] LABS: HEMOGLOBIN 7.6 g/dL (14.0-18.0)
[2024-10-08 07:43] LABS: ALBUMIN 1.9 g/dL (3.5-5.0); ALBUMIN/GLOBULIN RATIO 0.7 (0.8-2.0); ANION GAP 11.6 mmol/L (8-16); BILIRUBIN,TOTAL 0.2 mg/dL (0.2-1.2); CALCIUM 7.8 mg/dL (8.4-10.2); CREATININE, SERUM 0.73 mg/dL (0.72-1.25); POTASSIUM 3.6 mmol/L (3.5-5.1); TOTAL PROTEIN 4.7 g/dL (6.5-8.1)
[2024-10-09] VITALS (12 sets, daily range): BP systolic 83–156; BP diastolic 49–93; PULSE 55–72; RESP 12–20; TEMP 98.5–101.1; O2SAT 95–100
[2024-10-09] MEDS: ACETAMINOPHEN 325 MG/10 ML UDC PO PRN
[2024-10-09] MEDS: Vancomycin IV 1 GM in SODIUM CHLORIDE 0.9% 250ML 250 ML IV SCH (08:00)
== END 2024-10-09 14:34 | disposition hospice, inpatient (51) | DRG 207 ==
LOC: ER 11:46 → ERHOLD 14:17 → MED/SURG3 15:15 → UNDODISIN 10-02 17:07 → MED/SURG3 10-02 17:54 → ICU 10-04 23:42
PROVIDERS: ADMIT Internal Medicine; ATTEND Internal Medicine
PROC: 3E0333Z Introduction of Anti-inflammatory into Peripheral Vein, Percutaneous Approach (ICD-10-PCS; 2024-09-28)
PROC: 5A1955Z Respiratory Ventilation, Greater than 96 Consecutive Hours (ICD-10-PCS; principal; 2024-10-04)
PROC: 0BH17EZ Insertion of Endotracheal Airway into Trachea, Via Natural or Artificial Opening (ICD-10-PCS; 2024-10-04)
PROC: 5A2204Z Restoration of Cardiac Rhythm, Single (ICD-10-PCS; 2024-10-04)
PROC: 4A133R1 Monitoring of Arterial Saturation, Peripheral, Percutaneous Approach (ICD-10-PCS; 2024-10-05)
PROC: 02HV33Z Insertion of Infusion Device into Superior Vena Cava, Percutaneous Approach (ICD-10-PCS; 2024-10-05)
DX: J69.0 Pneumonitis due to inhalation of food and vomit (principal); I46.9 Cardiac arrest, cause unspecified; A41.9 Sepsis, unspecified organism; G93.41 Metabolic encephalopathy; R65.20 Severe sepsis without septic shock; L89.223 Pressure ulcer of left hip, stage 3; E43 Unspecified severe protein-calorie malnutrition; R53.2 Functional quadriplegia; J96.01 Acute respiratory failure with hypoxia; G93.1 Anoxic brain damage, not elsewhere classified; N39.0 Urinary tract infection, site not specified; L89.890 Pressure ulcer of other site, unstageable; L89.320 Pressure ulcer of left buttock, unstageable; L89.892 Pressure ulcer of other site, stage 2; Z66 Do not resuscitate; Z51.5 Encounter for palliative care; G20.C Parkinsonism, unspecified; K56.41 Fecal impaction; R13.13 Dysphagia, pharyngeal phase; F02.80 Dementia in other diseases classified elsewhere, unspecified severity, without behavioral disturbance, psychotic disturbance, mood disturbance, and anxiety; I10 Essential (primary) hypertension; M62.81 Muscle weakness (generalized); N40.0 Benign prostatic hyperplasia without lower urinary tract symptoms; N31.9 Neuromuscular dysfunction of bladder, unspecified; B96.20 Unspecified Escherichia coli [E. coli] as the cause of diseases classified elsewhere; R19.7 Diarrhea, unspecified; R53.81 Other malaise; Z68.24 Body mass index [BMI] 24.0-24.9, adult; Z79.82 Long term (current) use of aspirin; Z93.59 Other cystostomy status; Z99.3 Dependence on wheelchair
CPT/HCPCS: 31500; 36415; 36600; 70450; 70551; 71045; 74018; 74177; 74230; 80048; 80053; 81001; 82140; 82550; 82805; 82948; 83690; 83735; 83880; 84100; 84484; 85025; 85610; 85730; 87086; 87186; 94002; 94003; 94640; 94799; 95812; 99252; 99284; J0171; J0360; J0690; J0692; J0696; J1650; J1938; J1956; J2470; J3480; J7030; J7040; J7050; Q9967

== ENCOUNTER 2024-10-09 13:49 | Inpatient (IN) | payer OTHER ==
[~2024-10-09] VITALS: Ht 330.2 cm; Wt 77.1 kg
[2024-10-09] MEDS ORDERED: SCOPOLAMINE 1 MG PATCH TOP PRN (15:30)
[2024-10-09] MEDS ORDERED: BISACODYL 10 MG SUPP PR PRN (15:30)
[2024-10-09] MEDS ORDERED: ONDANSETRON HCL INJ 2MG/ML 2ML 2 MG/ML VIAL IV PRN (15:30)
[2024-10-09] MEDS ORDERED: HYOSCYAMINE 0.125 MG TAB PO PRN (15:30)
[2024-10-09] MEDS: Morphine 4mg INJECTION 4 MG/ML INJ IV PRN (16:28)
[2024-10-09] MEDS: LORAZEPAM INJ 2 MG/ML VIAL IV PRN (16:28)
[2024-10-09 18:16] VITALS: BP 150/60; PULSE 90; RESP 38; O2SAT 93
== END 2024-10-09 23:16 | disposition expired | DRG 951 ==
LOC: ICU 13:49
PROVIDERS: ADMIT Internal Medicine; ATTEND Internal Medicine
DX: Z51.5 Encounter for palliative care (principal); Z66 Do not resuscitate
CPT/HCPCS: J2060; J2270